=== PATIENT | female | born 1980 | race American Indian/Alaskan Native ===

== ENCOUNTER 2019-02-16 08:13 | Emergency (ER) | payer SELFPAY ==
[2019-02-16 08:20] VITALS: BP 132/88
[2019-02-16] MEDS ORDERED: BANOPHEN PO ONE (09:11)
[2019-02-16] MEDS ORDERED: REGLAN PO ONE (09:11)
[2019-02-16] MEDS ORDERED: FIORICET PO ONE (09:11)
[2019-02-16] MEDS ORDERED: DELTASONE PO ONE (09:12)
--- NOTE | 2019-02-16 09:14 | Emergency Department Report ---
ED General Adult HPI - General Chief complaint: Headache Stated complaint: RT SIDE HEADAHCES/PAIN Time Seen by Provider: 02/16/19 08:35 Source: patient, forepart rounder (forepart rounder line use) Mode of arrival: Ambulatory Limitations: Language Barrier - History of Present Illness Initial comments: Patient complains of right-sided headache that started 3 days ago. This information was obtained through an forepart rounder via phone. Patient has a history of migraine headaches. Patient denies any focal weakness on the right side or slurred speech. This is consistent with previous migraines. Not worse headache of life. -: Sudden Location: head Radiation: non-radiation Severity scale (0 -10): 8 Quality: sharp, other (throbbing) Consistency: constant Improves with: none Worsens with: none Associated Symptoms: denies other symptoms Treatments Prior to Arrival: none - Related Data Previous Rx's Medication Instructions Recorded Last Taken Type Butalb/Acetamin/Caff 50-325-40 1 tab PO Q6HR PRN #24 tab 02/16/19 Unknown Rx [Fioricet] Allergies Allergy/AdvReac Type Severity Reaction Status Date / Time No Known Allergies Allergy Unverified 02/16/19 08:21 ED Review of Systems ROS: Stated complaint: RT SIDE HEADAHCES/PAIN Other details as noted in HPI Comment: All other systems reviewed and negative Constitutional: denies: chills, fever Eyes: denies: eye pain, eye discharge, vision change ENT: denies: ear pain, throat pain Respiratory: denies: cough, shortness of breath, wheezing Cardiovascular: denies: chest pain, palpitations Endocrine: no symptoms reported Gastrointestinal: denies: abdominal pain, nausea, diarrhea Genitourinary: denies: urgency, dysuria, discharge Musculoskeletal: denies: back pain, joint swelling, arthralgia Skin: denies: rash, lesions Neurological: headache. denies: weakness, paresthesias Psychiatric: denies: anxiety, depression Hematological/Lymphatic: denies: easy bleeding, easy bruising ED Past Medical Hx - Past Medical History Previous Medical History?: No - Surgical History Past Surgical History?: Yes Hx Appendectomy: Yes - Social History Smoking Status: Never Smoker Substance Use Type: None - Medications Home Medications: Home Medications Medication Instructions Recorded Confirmed Last Taken Type Butalb/Acetamin/Caff 50-325-40 1 tab PO Q6HR PRN #24 tab 02/16/19 Unknown Rx [Fioricet] ED Physical Exam - General Limitations: Language Barrier General appearance: alert, in no apparent distress - Head Head exam: Present: atraumatic, normocephalic - Eye Eye exam: Present: normal appearance, PERRL, EOMI - ENT ENT exam: Present: mucous membranes moist - Neck Neck exam: Present: normal inspection - Respiratory Respiratory exam: Present: normal lung sounds bilaterally. Absent: respiratory distress, wheezes, rales - Cardiovascular Cardiovascular Exam: Present: regular rate, normal rhythm. Absent: systolic murmur, diastolic murmur, rubs, gallop - GI/Abdominal GI/Abdominal exam: Present: soft, normal bowel sounds. Absent: distended, tenderness - Extremities Exam Extremities exam: Present: normal inspection - Back Exam Back exam: Present: normal inspection - Neurological Exam Neurological exam: Present: alert, oriented X3, CN II-XII intact, normal gait, reflexes normal. Absent: motor sensory deficit - Psychiatric Psychiatric exam: Present: normal affect, normal mood - Skin Skin exam: Present: warm, dry, intact, normal color. Absent: rash ED Course Vital Signs 02/16/19 08:17 Temperature 97.8 F Pulse Rate 65 Respiratory 18 Rate Blood Pressure 132/88 O2 Sat by Pulse 100 Oximetry Critical care attestation.: If time is entered above; I have spent that time in minutes in the direct care of this critically ill patient, excluding procedure time. ED Disposition Clinical Impression: Headache Disposition: DC-01 TO HOME OR SELFCARE Is pt being admited?: No Does the pt Need Aspirin: No Condition: Stable Instructions: Acute Headache (ED) Additional Instructions: return if worse Referrals: SYDNIE NICHOLE MD [Primary Care Provider] - 3-5 Days [facility] [Provider Group] - 3-5 Days [facility] [Provider Group] - 3-5 Days [facility] [place] [facility] [place] - 3-5 Days Time of Disposition: 11:00
[2019-02-16] MEDS ORDERED: TORADOL PO ONE (10:00)
--- NOTE | 2019-02-16 10:54 | Cat Scan Report ---
PROCEDURE: CT HEAD/BRAIN WO CON TECHNIQUE: A noncontrast CT of the head was performed. HISTORY: headache COMPARISON: None FINDINGS: There is no acute intracranial hemorrhage. There is no brain edema, mass effect or midline shift. Ventricular size is appropriate for brain volume. There is no abnormal extra-axial fluid collections. There is no skull fracture seen. The visualized paranasal sinuses are clear. IMPRESSION: There is no acute intracranial abnormality seen. This document is electronically signed by Trinh Richards MD., Feb 16 2019 10:52:28 AM ET
== END 2019-02-16 11:10 | disposition home or self-care (01) ==
LOC: ED 08:13
DX: R51 Headache (principal); Z90.49 Acquired absence of other specified parts of digestive tract
CPT/HCPCS: 70450; 99283; J7512; Q0163